=== PATIENT | female | born 1995 | race African-American/Black ===

== ENCOUNTER 2022-08-19 20:41 | Emergency (ER) | payer OTHER ==
[~2022-08-19] VITALS: Ht 170.2 cm; Wt 126.8 kg
[2022-08-19] MEDS ORDERED: KETOROLAC TROMETH 60MG/2ML VIAL IM ONE (21:30)
[2022-08-20 00:16] VITALS: BP 135/90
== END 2022-08-20 00:28 | disposition home or self-care (01) ==
LOC: ER 20:41
DX: S82.62XA Displaced fracture of lateral malleolus of left fibula, initial encounter for closed fracture (principal); X50.1XXA Overexertion from prolonged static or awkward postures, initial encounter; Y93.89 Activity, other specified; Y92.89 Other specified places as the place of occurrence of the external cause; Y99.8 Other external cause status
CPT/HCPCS: 73610; 96372; 99283; J1885